=== PATIENT | female | born 1995 | race African-American/Black ===

== ENCOUNTER 2016-12-20 16:39 | Emergency (ER) | payer OTHER ==
[~2016-12-20] VITALS: Ht 157.5 cm; Wt 61.6 kg
[~2016-12-20 16:39] MED LIST: ADVIL,NUPRIN,M200 MG PO; BACTRIM,SEPT1 TABLET PO; COLACE100 MG PO; DOCUSATE SODIU100 MG PO; FERROUS SULFAT325 MG PO; IBUPROFEN600 MG PO; IBUPROFEN800 MG PO; IRON325 M1 PO; LABETALOL HCL200 MG PO; MOTRIN600 MG PO; NAPROXEN500 MG PO; NO HOME MEDS; PRENATAL TABLE1 EAC3 PO; TESSALON PERLE100 MG PO; VICODIN,LORT1 TABLET PO; VITRON-C TABLE1 EACH PO; ZOFRAN4 MG PO
[2016-12-20] MEDS ORDERED: METOCLOPRAMIDE10 MG PO (17:02)
[2016-12-20 17:22] LABS: HEMATOCRIT 37.7 % (36.0-46.0); MCHC 34.2 G/DL (30.0-36.0); MCV 87.7 FL (83-99); MEAN PLAT.VOLUME 10.6 uM^3 (9.5-12.4); PLATELET COUNT 221 K/uL (156-360); RBC DIS.WIDTH-CV 12.1 % (11.8-14.6); RBC DIS.WIDTH-SD 38.8 % (39-53)
[2016-12-20 17:33] LABS: CHLORIDE 106 mEq/L (99-109); POTASSIUM 3.8 mEq/L (3.7-5.4); SODIUM 137 mEq/L (136-147)
[2016-12-20 17:35] LABS: GLUCOSE 86 mg/dL (70-99)
[2016-12-20 17:36] LABS: ANION GAP 9 MEQ/L (2-14)
[2016-12-20 17:37] LABS: TOTAL BILIRUBIN 1.1 mg/dL (0.0-1.0)
[2016-12-20 17:38] LABS: ALKALINE PHOSPHATASE 49 IU/L (3-129)
[2016-12-20 17:39] LABS: GFR ESTIMATE (CALCULATED) > 59 mL/min/
[2016-12-20 17:40] LABS: UREA NITROGEN (BUN) 8 mg/dL (9-23)
[2016-12-20 17:46] LABS: ADD MIUA? YES; BILIRUBIN NEGATIVE; BLOOD NEGATIVE; COLOR YELLOW ((YELLOW)); GLUCOSE (STRIP) NEGATIVE; KETONES 80; LEUKOCYTES NEGATIVE; NITRITE NEGATIVE; PROTEIN (STRIP) NEGATIVE; SPECIFIC GRAVITY 1.029 (1.000-1.030); UROBILINOGEN 0.2 MG/DL (0.2-1.0)
[2016-12-20 17:52] LABS: BACTERIA NONE SEEN /HPF; EPITHELIAL CELLS RARE /HPF; MUCUS 2+ /LPF; RED BLOOD CELLS 0-5 /HPF (0-5); UCUL ADDED? NO; WHITE BLOOD CELLS 0-5 /HPF (0-5)
[2016-12-20 18:19] LABS: QUANTITATIVE HCG 124383.3 MIU/ML
[2016-12-20 20:32] VITALS: BP 126/78
== END 2016-12-20 20:45 | disposition home or self-care (01) ==
LOC: EME 16:39
DX: O21.0 Mild hyperemesis gravidarum (principal); Z3A.09 9 weeks gestation of pregnancy
CPT/HCPCS: 80053; 81003; 84702; 85027; 99281; 99285; J7030

== ENCOUNTER → 2016-12-21 | Outpatient (CLI) | payer OTHER ==
[~2016-12-21] VITALS: Ht 157.5 cm; Wt 61.6 kg
[~2016-12-21] MED LIST changes: +METOCLOPRAMIDE10 MG PO
[2016-12-21 16:20] VITALS: BP 106/78
== END | disposition home or self-care (01) ==
LOC: IVINF 16:30
DX: O21.0 Mild hyperemesis gravidarum (principal); Z3A.00 Weeks of gestation of pregnancy not specified
CPT/HCPCS: 96360; 96361; 96375; J2405; J7030

== ENCOUNTER 2017-02-03 19:34 | Emergency (ER) | payer OTHER ==
[~2017-02-03] VITALS: Ht 157.5 cm; Wt 59.6 kg
[2017-02-03 20:51] LABS: HEMATOCRIT 34.2 % (36.0-46.0); MCH 29.9 PG (29.0-34.0); MCHC 34.5 G/DL (30.0-36.0); MCV 86.8 FL (83-99); MEAN PLAT.VOLUME 10.3 uM^3 (9.5-12.4); PLATELET COUNT 219 K/uL (156-360); RBC DIS.WIDTH-CV 12.1 % (11.8-14.6); RBC DIS.WIDTH-SD 38.9 % (39-53); RED BLOOD COUNT 3.94 M/uL (3.80-5.20); WHITE BLOOD COUNT 8.1 K/uL (4.1-10.2)
[2017-02-03 20:56] LABS: ADD MIUA? YES; BILIRUBIN NEGATIVE; BLOOD NEGATIVE; COLOR YELLOW ((YELLOW)); GLUCOSE (STRIP) NEGATIVE; KETONES 20; LEUKOCYTES TRACE; NITRITE NEGATIVE; PROTEIN (STRIP) 30; SPECIFIC GRAVITY 1.029 (1.000-1.030); UROBILINOGEN 0.2 MG/DL (0.2-1.0)
[2017-02-03 21:02] LABS: CHLORIDE 107 mEq/L (99-109); POTASSIUM 3.5 mEq/L (3.7-5.4); SODIUM 137 mEq/L (136-147)
[2017-02-03 21:04] LABS: GLUCOSE 77 mg/dL (70-99)
[2017-02-03 21:05] LABS: ANION GAP 8 MEQ/L (2-14)
[2017-02-03 21:08] LABS: GFR ESTIMATE (CALCULATED) > 59 mL/min/
[2017-02-03 21:09] LABS: UREA NITROGEN (BUN) 6 mg/dL (9-23)
[2017-02-03 21:14] LABS: BACTERIA 1+ /HPF; CASTS NONE SEEN /LPF; CRYSTALS NONE SEEN; EPITHELIAL CELLS 1+ /HPF; MUCUS 3+ /LPF; RED BLOOD CELLS 0-5 /HPF (0-5); UCUL ADDED? NO; WHITE BLOOD CELLS 0-5 /HPF (0-5)
[2017-02-03 21:35] LABS: QUANTITATIVE HCG 32973.1 MIU/ML
[2017-02-03 23:43] VITALS: BP 96/53
== END 2017-02-03 23:45 | disposition home or self-care (01) ==
LOC: EME 19:34
PROVIDERS: Physician Assistant
DX: O99.89 Other specified diseases and conditions complicating pregnancy, childbirth and the puerperium (principal); R10.9 Unspecified abdominal pain; R10.2 Pelvic and perineal pain; Z3A.15 15 weeks gestation of pregnancy
CPT/HCPCS: 76805; 80048; 81003; 84702; 85027; 86900; 86901; 99281; 99284

== ENCOUNTER 2017-03-27 19:28 | Emergency (ER) | payer OTHER ==
[~2017-03-27] VITALS: Ht 157.5 cm; Wt 59.8 kg
[2017-03-27 21:05] VITALS: BP 0/0
== END 2017-03-27 21:09 | disposition home or self-care (01) ==
LOC: EME 19:28
DX: O26.892 Other specified pregnancy related conditions, second trimester (principal); S20.211A Contusion of right front wall of thorax, initial encounter; W01.0XXA Fall on same level from slipping, tripping and stumbling without subsequent striking against object, initial encounter; Z3A.22 22 weeks gestation of pregnancy
CPT/HCPCS: 99281; 99284

== ENCOUNTER 2017-04-18 13:01 | Outpatient (CLI) | payer OTHER ==
[2017-04-18 13:22] VITALS: BP 103/65
[2017-04-18 13:45] LABS: EOSINOPHIL (%) 0.1 % (0-5); HEMATOCRIT 30.7 % (36.0-46.0); IMMATURE GRANULOCYTE (%) 0.5 % (0.0-0.7); IMMATURE GRANULOCYTE COUNT 0.1 K/uL; INSTRUMENT ABS NEUTROPHIL CT 7.3 K/uL; LYMPHOCYTE COUNT 1.2 K/uL (1.0-2.8); MCH 31.3 PG (29.0-34.0); MCHC 34.5 G/DL (30.0-36.0); MCV 90.6 FL (83-99); MEAN PLAT.VOLUME 10.1 uM^3 (9.5-12.4); MONOCYTE (%) 7.2 % (3-12); MONOCYTE COUNT 0.7 K/uL (0-0.8); NEUTROPHIL (%) 79.3 % (45-76); NEUTROPHIL COUNT 7.3 K/uL (1.8-6.4); PLATELET COUNT 219 K/uL (156-360); RBC DIS.WIDTH-CV 12.6 % (11.8-14.6); RBC DIS.WIDTH-SD 41.6 % (39-53); RED BLOOD COUNT 3.39 M/uL (3.80-5.20); WHITE BLOOD COUNT 9.2 K/uL (4.1-10.2)
[2017-04-18 14:03] LABS: ALKALINE PHOSPHATASE 72 IU/L (3-129); ANION GAP 11 MEQ/L (2-14); CHLORIDE 104 MEQ/L (99-109); GFR ESTIMATE (CALCULATED) > 59 mL/min/; GLUCOSE 66 mg/dL (70-99); POTASSIUM 3.7 MEQ/L (3.7-5.4); SAMPLE HEMOLYSIS CHECK 0; SAMPLE ICTERIC CHECK 0; SAMPLE LIPEMIA CHECK 0; SODIUM 138 MEQ/L (136-147); TOTAL BILIRUBIN 0.7 MG/DL (0.0-1.0); UREA NITROGEN (BUN) 5 mg/dL (9-23)
[2017-04-18 14:35] VITALS: BP 101/58
[2017-04-18 16:23] VITALS: BP 101/58
== END 2017-04-18 17:35 | disposition home or self-care (01) ==
LOC: LDRP-OP 13:01 → 2WEST 13:03
PROVIDERS: Nurse Practitioner
DX: O46.92 Antepartum hemorrhage, unspecified, second trimester (principal); Z3A.25 25 weeks gestation of pregnancy; O21.9 Vomiting of pregnancy, unspecified
CPT/HCPCS: 59025; 76815; 80053; 85025; G0378; J7120

== ENCOUNTER 2017-05-24 19:38 | Outpatient (CLI) | payer OTHER ==
[~2017-05-24] VITALS: Ht 157.5 cm; Wt 59.9 kg
[2017-05-24 19:54] VITALS: BP 112/65
[2017-05-24] MEDS ORDERED: ZOFRAN4 MG PO (21:07)
[2017-05-24 21:49] LABS: EOSINOPHIL (%) 0.2 % (0-5); IMMATURE GRANULOCYTE (%) 0.3 % (0.0-0.7); LYMPHOCYTE COUNT 1.9 K/uL (1.0-2.8); MCH 29.3 PG (29.0-34.0); MCV 86.2 FL (83-99); MEAN PLAT.VOLUME 10.5 uM^3 (9.5-12.4); MONOCYTE (%) 6.5 % (3-12); MONOCYTE COUNT 0.6 K/uL (0-0.8); NEUTROPHIL (%) 73.3 % (45-76); PLATELET COUNT 206 K/uL (156-360); RBC DIS.WIDTH-CV 11.5 % (11.8-14.6); RBC DIS.WIDTH-SD 36.5 % (39-53); WHITE BLOOD COUNT 9.5 K/uL (4.1-10.2)
[2017-05-24 22:00] LABS: CHLORIDE 106 mEq/L (99-109); SODIUM 138 mEq/L (136-147)
[2017-05-24 22:02] LABS: GLUCOSE 66 mg/dL (70-99)
[2017-05-24 22:03] LABS: ANION GAP 9 MEQ/L (2-14)
[2017-05-24 22:04] LABS: TOTAL BILIRUBIN 0.6 mg/dL (0.0-1.0)
[2017-05-24 22:06] LABS: ALKALINE PHOSPHATASE 119 IU/L (3-129); GFR ESTIMATE (CALCULATED) > 59 mL/min/
[2017-05-24 22:07] LABS: UREA NITROGEN (BUN) 4 mg/dL (9-23)
[2017-05-24 22:36] LABS: UR CREATININE CONCENTRATION 121.5 MG/DL
[2017-05-24 22:39] LABS: LACTATE DEHYDROGENASE 113 IU/L (20-246)
== END 2017-05-24 22:20 | disposition home or self-care (01) ==
LOC: LDRP-OP 19:38 → 2WEST 19:39 → LDRP-OP 08-26 10:27
PROVIDERS: Obstetrics & Gynecology Gynecology
DX: O21.0 Mild hyperemesis gravidarum (principal); Z3A.31 31 weeks gestation of pregnancy
CPT/HCPCS: 59025; 80053; 82570; 83615; 84156; 85025; G0378; J7120

== ENCOUNTER 2017-07-24 15:43 | Inpatient (IN) | payer OTHER ==
[2017-07-24] VITALS (8 sets, daily range): BP systolic 119–150; BP diastolic 67–86
[~2017-07-24] VITALS: Ht 157.5 cm; Wt 61.8 kg
[2017-07-24] MEDS ORDERED: IRON325 M1 PO (16:19)
[2017-07-24 17:04] LABS: EOSINOPHIL (%) 0.1 % (0-5); HEMATOCRIT 28.4 % (36.0-46.0); IMMATURE GRANULOCYTE (%) 0.3 % (0.0-0.7); INSTRUMENT ABS NEUTROPHIL CT 5.3 K/uL; LYMPHOCYTE COUNT 1.1 K/uL (1.0-2.8); MCH 27.3 PG (29.0-34.0); MCHC 33.1 G/DL (30.0-36.0); MCV 82.6 FL (83-99); MEAN PLAT.VOLUME 11.4 uM^3 (9.5-12.4); MONOCYTE (%) 5.7 % (3-12); MONOCYTE COUNT 0.4 K/uL (0-0.8); NEUTROPHIL (%) 77.5 % (45-76); NEUTROPHIL COUNT 5.3 K/uL (1.8-6.4); PLATELET COUNT 177 K/uL (156-360); RBC DIS.WIDTH-CV 13.1 % (11.8-14.6); RBC DIS.WIDTH-SD 39.3 % (39-53); RED BLOOD COUNT 3.44 M/uL (3.80-5.20); WHITE BLOOD COUNT 6.9 K/uL (4.1-10.2)
[2017-07-25] VITALS (21 sets, daily range): BP systolic 120–166; BP diastolic 69–85
[2017-07-25] MEDS ORDERED: IBUPROFEN800 MG PO (03:19)
[2017-07-26 07:20] LABS: EOSINOPHIL (%) 0.4 % (0-5); HEMATOCRIT 24.7 % (36.0-46.0); IMMATURE GRANULOCYTE (%) 0.3 % (0.0-0.7); INSTRUMENT ABS NEUTROPHIL CT 4.6 K/uL; LYMPHOCYTE COUNT 1.7 K/uL (1.0-2.8); MCH 27.6 PG (29.0-34.0); MCHC 32.8 G/DL (30.0-36.0); MEAN PLAT.VOLUME 11.7 uM^3 (9.5-12.4); MONOCYTE (%) 8.2 % (3-12); MONOCYTE COUNT 0.6 K/uL (0-0.8); NEUTROPHIL (%) 66.2 % (45-76); NEUTROPHIL COUNT 4.6 K/uL (1.8-6.4); PLATELET COUNT 174 K/uL (156-360); RBC DIS.WIDTH-CV 13.4 % (11.8-14.6); RBC DIS.WIDTH-SD 40.7 % (39-53); RED BLOOD COUNT 2.94 M/uL (3.80-5.20); WHITE BLOOD COUNT 6.9 K/uL (4.1-10.2)
[2017-07-26 14:31] VITALS: BP 123/73
[2017-07-26 19:33] VITALS: BP 134/78
[2017-07-26 23:00] VITALS: BP 130/85
[2017-07-27 15:18] VITALS: BP 141/81
== END 2017-07-27 16:31 | disposition home or self-care (01) | DRG 775 ==
LOC: LDRP-OP → 2WEST 15:44 → LDRP-OP 07-25 15:13 → 2WEST 07-27 16:31 → LDRP-OP 08-26 22:35
PROVIDERS: Nurse Practitioner; Obstetrics & Gynecology
PROC: 3E033VJ Introduction of Other Hormone into Peripheral Vein, Percutaneous Approach (ICD-10-PCS; 2017-07-24)
PROC: 10E0XZZ Delivery of Products of Conception, External Approach (ICD-10-PCS; principal; 2017-07-25)
PROC: 10907ZC Drainage of Amniotic Fluid, Therapeutic from Products of Conception, Via Natural or Artificial Opening (ICD-10-PCS; 2017-07-25)
PROC: 3E0S3BZ Introduction of Anesthetic Agent into Epidural Space, Percutaneous Approach (ICD-10-PCS; 2017-07-25)
DX: O99.824 Streptococcus B carrier state complicating childbirth (principal); D62 Acute posthemorrhagic anemia; Z37.0 Single live birth; Z3A.39 39 weeks gestation of pregnancy; O35.8XX1 Maternal care for other (suspected) fetal abnormality and damage, fetus 1; O69.81X1 Labor and delivery complicated by cord around neck, without compression, fetus 1; O99.02 Anemia complicating childbirth
CPT/HCPCS: 85025; 85025 91; C1755; G0378; J3370; J7120

== ENCOUNTER 2017-12-25 15:52 | Emergency (ER) | payer OTHER ==
[~2017-12-25] VITALS: Ht 157.5 cm; Wt 57.7 kg
[2017-12-25 16:25] LABS: HEMATOCRIT 34.2 % (36.0-46.0); HEMOGLOBIN 11.3 G/DL (11.9-15.5); MCH 28.5 PG (29.0-34.0); MCV 86.1 FL (83-99); PLATELET COUNT 213 K/uL (156-360); RBC DIS.WIDTH-CV 13.6 % (11.8-14.6); RED BLOOD COUNT 3.97 M/uL (3.80-5.20); WHITE BLOOD COUNT 4.4 K/uL (4.1-10.2)
[2017-12-25 16:35] LABS: CHLORIDE 104 mEq/L (99-109); SODIUM 138 mEq/L (136-147)
[2017-12-25 16:37] LABS: GLUCOSE 92 mg/dL (70-99)
[2017-12-25 16:41] LABS: CREATININE 0.8 mg/dL (0.6-1.3); GFR ESTIMATE (CALCULATED) > 59 mL/min/
[2017-12-25 16:42] LABS: UREA NITROGEN (BUN) 8 mg/dL (9-23)
[2017-12-25 18:18] LABS: QUANTITATIVE HCG < 4.0 MIU/ML
[2017-12-25 21:57] LABS: APPEARANCE CLEAR ((CLEAR)); BILIRUBIN NEGATIVE; BLOOD NEGATIVE; COLOR YELLOW ((YELLOW)); GLUCOSE (STRIP) NEGATIVE; KETONES 20; LEUKOCYTES NEGATIVE; NITRITE NEGATIVE; PROTEIN (STRIP) NEGATIVE; SPECIFIC GRAVITY 1.018 (1.000-1.030); UCUL ADDED? NO; UROBILINOGEN 0.2 MG/DL (0.2-1.0)
[2017-12-25] MEDS ORDERED: MOTRIN600 MG PO (23:05)
[2017-12-25] MEDS ORDERED: ZOFRAN ODT4 MG PO (23:05)
[2017-12-25 23:18] VITALS: BP 108/67
== END 2017-12-25 23:19 | disposition home or self-care (01) ==
LOC: EME 15:52
PROVIDERS: Emergency Medicine
DX: R55 Syncope and collapse (principal); R11.2 Nausea with vomiting, unspecified; R10.31 Right lower quadrant pain; R42 Dizziness and giddiness; R07.9 Chest pain, unspecified; R06.02 Shortness of breath; R00.0 Tachycardia, unspecified; R20.2 Paresthesia of skin; N83.202 Unspecified ovarian cyst, left side; T83.89XA Other specified complication of genitourinary prosthetic devices, implants and grafts, initial encounter; Z88.0 Allergy status to penicillin
CPT/HCPCS: 71046; 74176; 80048; 81003; 84702; 85027; 93005; 99281; 99285; J1885; J2405; J7040

== ENCOUNTER 2017-12-27 17:38 | Emergency (ER) | payer OTHER ==
[~2017-12-27] VITALS: Ht 157.5 cm; Wt 58.2 kg
[~2017-12-27 17:38] MED LIST changes: +ZOFRAN ODT4 MG PO
[2017-12-27 18:28] LABS: HEMATOCRIT 36.9 % (36.0-46.0); HEMOGLOBIN 12.2 G/DL (11.9-15.5); MCH 28.2 PG (29.0-34.0); MCHC 33.1 G/DL (30.0-36.0); MCV 85.4 FL (83-99); RBC DIS.WIDTH-CV 13.6 % (11.8-14.6); RBC DIS.WIDTH-SD 42.8 % (39-53); RED BLOOD COUNT 4.32 M/uL (3.80-5.20)
[2017-12-27 18:38] LABS: ALBUMIN 4.3 g/dL (3.2-4.8); CHLORIDE 102 mEq/L (99-109); POTASSIUM 3.7 mEq/L (3.7-5.4); SODIUM 138 mEq/L (136-147)
[2017-12-27 18:40] LABS: GLUCOSE 77 mg/dL (70-99); TOTAL PROTEIN 7.1 g/dL (6.4-8.3)
[2017-12-27 18:42] LABS: TOTAL BILIRUBIN 0.5 mg/dL (0.0-1.0)
[2017-12-27 18:44] LABS: ALKALINE PHOSPHATASE 64 IU/L (3-129); CREATININE 0.8 mg/dL (0.6-1.3); GFR ESTIMATE (CALCULATED) > 59 mL/min/
[2017-12-27 18:45] LABS: AST (GOT) 21 IU/L (2-34); UREA NITROGEN (BUN) 6 mg/dL (9-23)
[2017-12-27 18:47] LABS: ALT (GPT) 13 IU/L (3-49)
[2017-12-27 18:52] LABS: QUANTITATIVE HCG < 4.0 MIU/ML
[2017-12-27 19:22] LABS: PLAT.SUFFICIENCY DECREASED; PLATELET COUNT 137 K/uL (156-360)
[2017-12-27 23:29] LABS: APPEARANCE CLOUDY ((CLEAR)); BILIRUBIN NEGATIVE; BLOOD NEGATIVE; COLOR YELLOW ((YELLOW)); GLUCOSE (STRIP) NEGATIVE; KETONES 80; LEUKOCYTES NEGATIVE; NITRITE NEGATIVE; PROTEIN (STRIP) 30; SPECIFIC GRAVITY 1.025 (1.000-1.030); UROBILINOGEN 0.2 MG/DL (0.2-1.0)
[2017-12-27 23:34] LABS: BACTERIA RARE /HPF; EPITHELIAL CELLS 2+ /HPF; MUCUS TRACE /LPF; RED BLOOD CELLS 0-5 /HPF (0-5); UCUL ADDED? NO; WHITE BLOOD CELLS 0-5 /HPF (0-5)
[2017-12-27] MEDS ORDERED: ROBITUSSIN AC,T10 ML PO (23:48)
[2017-12-27] MEDS ORDERED: REGLAN10 MG PO (23:48)
[2017-12-28 00:30] VITALS: BP 123/78
== END 2017-12-28 00:31 | disposition home or self-care (01) ==
LOC: EME 17:38
PROVIDERS: Physician Assistant
DX: J10.1 Influenza due to other identified influenza virus with other respiratory manifestations (principal); R11.2 Nausea with vomiting, unspecified; Z88.0 Allergy status to penicillin
CPT/HCPCS: 80053; 81003; 84702; 85027; 87502; 99281; 99284

== ENCOUNTER 2018-01-24 08:50 | Day surgery (SDC) | payer OTHER ==
[~2018-01-24] VITALS: Ht 157.5 cm; Wt 56.2 kg
[~2018-01-24 08:50] MED LIST changes: +REGLAN10 MG PO; +ROBITUSSIN AC,T10 ML PO; +TYLENOL WITH C1 EACH PO
[2018-01-24 09:23] VITALS: BP 108/63
[2018-01-24] MEDS ORDERED: IBUPROFEN800 MG PO (09:59)
[2018-01-24] MEDS ORDERED: ENDOCET 5-3251 EACH PO (09:59)
[2018-01-24 12:43] VITALS: BP 109/64
[2018-01-24 13:43] VITALS: BP 112/57
[2018-01-24 14:41] VITALS: BP 116/68
== END 2018-01-24 14:45 | disposition home or self-care (01) ==
LOC: SDC 08:50
DX: N83.201 Unspecified ovarian cyst, right side (principal); N83.202 Unspecified ovarian cyst, left side; Z30.8 Encounter for other contraceptive management; R00.0 Tachycardia, unspecified
CPT/HCPCS: J0131; J1100; J1885; J2250; J2310; J2405; J2765; J3010

== ENCOUNTER 2018-04-05 16:48 | Emergency (ER) | payer OTHER ==
[~2018-04-05] VITALS: Ht 157.5 cm; Wt 59.0 kg
[~2018-04-05 16:48] MED LIST changes: +ENDOCET 5-3251 EACH PO
[2018-04-05 17:18] LABS: HEMATOCRIT 36.1 % (36.0-46.0); HEMOGLOBIN 12.1 G/DL (11.9-15.5); MCH 28.8 PG (29.0-34.0); MCHC 33.5 G/DL (30.0-36.0); PLATELET COUNT 258 K/uL (156-360); RBC DIS.WIDTH-CV 13.5 % (11.8-14.6); RBC DIS.WIDTH-SD 42.4 % (39-53); WHITE BLOOD COUNT 5.5 K/uL (4.1-10.2)
[2018-04-05 17:29] LABS: ALBUMIN 4.6 g/dL (3.2-4.8)
[2018-04-05 17:30] LABS: CHLORIDE 107 mEq/L (99-109); POTASSIUM 4.4 mEq/L (3.7-5.4); SODIUM 139 mEq/L (136-147)
[2018-04-05 17:32] LABS: GLUCOSE 90 mg/dL (70-99); TOTAL PROTEIN 7.7 g/dL (6.4-8.3)
[2018-04-05 17:34] LABS: TOTAL BILIRUBIN 0.5 mg/dL (0.0-1.0)
[2018-04-05 17:35] LABS: ALKALINE PHOSPHATASE 62 IU/L (3-129)
[2018-04-05 17:36] LABS: GFR ESTIMATE (CALCULATED) > 59 mL/min/
[2018-04-05 17:37] LABS: APPEARANCE CLEAR ((CLEAR)); BILIRUBIN NEGATIVE; BLOOD NEGATIVE; COLOR YELLOW ((YELLOW)); GLUCOSE (STRIP) NEGATIVE; KETONES NEGATIVE; LEUKOCYTES SMALL; NITRITE NEGATIVE; PROTEIN (STRIP) 30; SPECIFIC GRAVITY 1.028 (1.000-1.030)
[2018-04-05 17:37] LABS: AST (GOT) 28 IU/L (2-34); UREA NITROGEN (BUN) 10 mg/dL (9-23)
[2018-04-05 17:39] LABS: ALT (GPT) 22 IU/L (3-49); LIPASE 125 U/L (1.0-51.0)
[2018-04-05 17:45] LABS: QUANTITATIVE HCG < 4.0 MIU/ML
[2018-04-05 18:08] LABS: BACTERIA NONE SEEN /HPF; EPITHELIAL CELLS 1+ /HPF; MUCUS TRACE /LPF; RED BLOOD CELLS 0-5 /HPF (0-5); UCUL ADDED? NO; WHITE BLOOD CELLS 0-5 /HPF (0-5)
[2018-04-05] MEDS ORDERED: REGLAN10 MG PO (20:57)
[2018-04-05] MEDS ORDERED: BENTYL20 MG PO (20:58)
[2018-04-05] MEDS ORDERED: MOTRIN600 MG PO (20:58)
[2018-04-05 21:22] VITALS: BP 116/76
== END 2018-04-05 21:23 | disposition home or self-care (01) ==
LOC: EME 16:48 → RME 16:48 → EME 16:48 → RME 21:23
PROVIDERS: Nurse Practitioner Family
DX: R10.11 Right upper quadrant pain (principal); R74.8 Abnormal levels of other serum enzymes; R11.2 Nausea with vomiting, unspecified; Z88.0 Allergy status to penicillin
CPT/HCPCS: 74176; 76705; 80053; 81003; 83690; 84702; 85027; 99281; 99284; J0500; J1885; J2765